=== PATIENT | female | born 1960 | race Caucasian/White ===

== ENCOUNTER 2017-03-25 18:37 | Emergency (ER) | payer SELFPAY ==
[~2017-03-25] VITALS: Ht 149.9 cm; Wt 56.4 kg
[2017-03-25 19:20] LABS: INFLUENZA TYPE A NEGATIVE FOR TYPE A (NEGATIVE); INFLUENZA TYPE B NEGATIVE FOR TYPE B (NEGATIVE)
[2017-03-25 21:30] VITALS: BP 124/81
== END 2017-03-25 21:34 | disposition home or self-care (01) ==
LOC: EMS 18:40
DX: J20.9 Acute bronchitis, unspecified (principal)
CPT/HCPCS: 87804; 99284